=== PATIENT | female | born 1950 | race Caucasian/White ===

== ENCOUNTER 2022-09-21 21:37 | Inpatient (IN) | payer MEDICARE ==
[2022-09-21] MEDS ORDERED: Loratadine 10 MG TAB PO PRN (23:14)
[2022-09-21] MEDS ORDERED: HYDROcodone/Acetaminophen 10/325 mg Tablet PO PRN (23:14)
[2022-09-21] MEDS ORDERED: Hyoscyamine SL 0.125 MG TAB PO PRN (23:14)
[2022-09-21] MEDS: HYDROcodone/Acetaminophen 10/325 mg Tablet PO PRN (23:58)
[2022-09-22] MEDS: HYDROcodone/Acetaminophen 10/325 mg Tablet PO PRN ×3 (03:47→18:58)
[2022-09-22] MEDS: Levothyroxine Sodium 25 MCG TAB PO SCH (05:26)
[2022-09-22] MEDS: Levothyroxine Sodium 112 MCG TAB PO SCH (05:26)
[2022-09-22] MEDS ORDERED: traMADol HCl 50 MG TAB PO PRN (08:46)
[2022-09-22] MEDS ORDERED: Non-Formulary Item 1 EACH (Levothyroxine Sodium [Synthroid] 137 MCG Tablet) PO SCH (09:00)
[2022-09-22] MEDS: Losartan 25 MG TAB PO SCH (09:31)
[2022-09-22] MEDS: Aspirin 81 mg Enteric Coated Tablet PO SCH ×2 (09:31→20:28)
[2022-09-22] MEDS: Estradiol 1 MG TAB PO SCH (09:31)
[2022-09-22] MEDS: Senokot S 8.6-50 MG TAB PO SCH (09:31)
[2022-09-22] MEDS: Docusate 100 MG CAP PO SCH ×2 (09:31→20:28)
[2022-09-22] MEDS: Artificial Tear Sol 15 ML BOT EA EYE SCH ×2 (09:32→20:27)
[2022-09-22] MEDS: Ferrous Gluconate 324 MG TAB PO SCH ×2 (09:32→20:29)
[2022-09-22] MEDS: Colestipol 1 GM TAB PO SCH ×2 (09:32→20:30)
[2022-09-22] MEDS: Ascorbic Acid 500 mg Chewable Tablet PO SCH (09:32)
[2022-09-22] MEDS: Cyclobenzaprine 10 MG TAB PO PRN ×3 (10:24→19:00)
[2022-09-22] MEDS: Atorvastatin Calcium 10 MG TAB PO SCH (20:28)
[2022-09-23] MEDS: Senokot S 8.6-50 MG TAB PO SCH ×3 (02:43→20:36)
[2022-09-23] MEDS: Levothyroxine Sodium 25 MCG TAB PO SCH (05:40)
[2022-09-23] MEDS: HYDROcodone/Acetaminophen 10/325 mg Tablet PO PRN ×2 (05:40→09:38)
[2022-09-23] MEDS: Levothyroxine Sodium 112 MCG TAB PO SCH (05:40)
[2022-09-23] MEDS: Artificial Tear Sol 15 ML BOT EA EYE SCH ×2 (08:11→20:36)
[2022-09-23] MEDS: Colestipol 1 GM TAB PO SCH (08:13)
[2022-09-23] MEDS: Ascorbic Acid 500 mg Chewable Tablet PO SCH (08:13)
[2022-09-23] MEDS: Aspirin 81 mg Enteric Coated Tablet PO SCH ×2 (08:14→20:36)
[2022-09-23] MEDS: Losartan 25 MG TAB PO SCH (08:18)
[2022-09-23] MEDS: Estradiol 1 MG TAB PO SCH (08:18)
[2022-09-23] MEDS: Docusate 100 MG CAP PO SCH ×2 (08:18→20:36)
[2022-09-23] MEDS: Ferrous Gluconate 324 MG TAB PO SCH ×2 (08:19→20:36)
[2022-09-23] MEDS: Cyclobenzaprine 10 MG TAB PO PRN ×3 (09:42→23:37)
[2022-09-23] MEDS ORDERED: HYDROcodone/Acetaminophen 5/325 mg Tablet PO PRN (13:26)
[2022-09-23] MEDS ORDERED: traMADol HCl 50 MG TAB PO SCH (13:30)
[2022-09-23] MEDS: HYDROcodone/Acetaminophen 10/325 mg Tablet PO SCH ×2 (17:28→23:35)
[2022-09-23] MEDS: Atorvastatin Calcium 10 MG TAB PO SCH (20:36)
[2022-09-23] MEDS: traMADol HCl 50 MG TAB PO PRN (20:41)
[2022-09-23] MEDS: Polyethylene Glycol 3350 17 GM Packet PO PRN (20:42)
[2022-09-24] MEDS: HYDROcodone/Acetaminophen 10/325 mg Tablet PO SCH ×3 (05:46→18:06)
[2022-09-24] MEDS: Levothyroxine Sodium 112 MCG TAB PO SCH (05:46)
[2022-09-24] MEDS: Levothyroxine Sodium 25 MCG TAB PO SCH (05:46)
[2022-09-24] MEDS: Artificial Tear Sol 15 ML BOT EA EYE SCH ×2 (09:32→21:24)
[2022-09-24] MEDS: Ascorbic Acid 500 mg Chewable Tablet PO SCH (09:33)
[2022-09-24] MEDS: Aspirin 81 mg Enteric Coated Tablet PO SCH ×2 (09:33→21:21)
[2022-09-24] MEDS: Estradiol 1 MG TAB PO SCH (09:33)
[2022-09-24] MEDS: Docusate 100 MG CAP PO SCH ×2 (09:33→21:22)
[2022-09-24] MEDS: Losartan 25 MG TAB PO SCH (09:34)
[2022-09-24] MEDS: Ferrous Gluconate 324 MG TAB PO SCH ×2 (09:34→21:23)
[2022-09-24] MEDS: Senokot S 8.6-50 MG TAB PO SCH (09:34)
[2022-09-24] MEDS: traMADol HCl 50 MG TAB PO PRN ×2 (10:43→21:23)
[2022-09-24] MEDS: Atorvastatin Calcium 10 MG TAB PO SCH (21:21)
[2022-09-24] MEDS: Cyclobenzaprine 10 MG TAB PO PRN (21:22)
[2022-09-24] MEDS: Polyethylene Glycol 3350 17 GM Packet PO PRN (21:29)
[2022-09-25] MEDS: HYDROcodone/Acetaminophen 10/325 mg Tablet PO SCH ×4 (00:40→17:57)
[2022-09-25] MEDS: Levothyroxine Sodium 112 MCG TAB PO SCH (05:34)
[2022-09-25] MEDS: Levothyroxine Sodium 25 MCG TAB PO SCH (05:34)
[2022-09-25] MEDS: Losartan 25 MG TAB PO SCH (08:53)
[2022-09-25] MEDS: Ferrous Gluconate 324 MG TAB PO SCH ×2 (08:54→21:07)
[2022-09-25] MEDS: Aspirin 81 mg Enteric Coated Tablet PO SCH ×2 (08:54→21:07)
[2022-09-25] MEDS: Estradiol 1 MG TAB PO SCH (08:54)
[2022-09-25] MEDS: traMADol HCl 50 MG TAB PO PRN ×3 (08:54→21:48)
[2022-09-25] MEDS: Ascorbic Acid 500 mg Chewable Tablet PO SCH (08:54)
[2022-09-25] MEDS: Artificial Tear Sol 15 ML BOT EA EYE SCH ×2 (08:56→21:09)
[2022-09-25] MEDS: Atorvastatin Calcium 10 MG TAB PO SCH (21:05)
[2022-09-25] MEDS: Docusate 100 MG CAP PO SCH (21:06)
[2022-09-25] MEDS: Cyclobenzaprine 10 MG TAB PO PRN (21:06)
[2022-09-25] MEDS: Polyethylene Glycol 3350 17 GM Packet PO PRN (21:47)
[2022-09-26] MEDS: HYDROcodone/Acetaminophen 10/325 mg Tablet PO SCH ×4 (00:29→18:00)
[2022-09-26] MEDS: traMADol HCl 50 MG TAB PO PRN ×4 (04:07→20:59)
[2022-09-26] MEDS: Levothyroxine Sodium 25 MCG TAB PO SCH (05:39)
[2022-09-26] MEDS: Levothyroxine Sodium 112 MCG TAB PO SCH (05:39)
[2022-09-26] MEDS: Aspirin 81 mg Enteric Coated Tablet PO SCH ×2 (09:16→20:47)
[2022-09-26] MEDS: Losartan 25 MG TAB PO SCH (09:16)
[2022-09-26] MEDS: Estradiol 1 MG TAB PO SCH (09:17)
[2022-09-26] MEDS: Ascorbic Acid 500 mg Chewable Tablet PO SCH (09:17)
[2022-09-26] MEDS: Ferrous Gluconate 324 MG TAB PO SCH ×2 (09:17→20:47)
[2022-09-26] MEDS: Artificial Tear Sol 15 ML BOT EA EYE SCH ×2 (09:21→20:47)
[2022-09-26] MEDS: Docusate 100 MG CAP PO SCH (20:47)
[2022-09-26] MEDS: Atorvastatin Calcium 10 MG TAB PO SCH (20:47)
[2022-09-26] MEDS: Polyethylene Glycol 3350 17 GM Packet PO PRN (20:53)
[2022-09-26] MEDS: Senokot S 8.6-50 MG TAB PO PRN (20:53)
[2022-09-27] MEDS: HYDROcodone/Acetaminophen 10/325 mg Tablet PO SCH ×4 (00:44→17:48)
[2022-09-27] MEDS: Cyclobenzaprine 10 MG TAB PO PRN ×2 (04:14→20:17)
[2022-09-27] MEDS: traMADol HCl 50 MG TAB PO PRN ×3 (04:15→21:50)
[2022-09-27] MEDS: Levothyroxine Sodium 25 MCG TAB PO SCH (05:25)
[2022-09-27] MEDS: Levothyroxine Sodium 112 MCG TAB PO SCH (05:25)
[2022-09-27] MEDS: Aspirin 81 mg Enteric Coated Tablet PO SCH ×2 (08:13→20:18)
[2022-09-27] MEDS: Losartan 25 MG TAB PO SCH (08:13)
[2022-09-27] MEDS: Ascorbic Acid 500 mg Chewable Tablet PO SCH (08:14)
[2022-09-27] MEDS: Estradiol 1 MG TAB PO SCH (08:14)
[2022-09-27] MEDS: Ferrous Gluconate 324 MG TAB PO SCH ×2 (08:14→20:17)
[2022-09-27] MEDS: Artificial Tear Sol 15 ML BOT EA EYE SCH ×2 (08:14→20:18)
[2022-09-27] MEDS: Senokot S 8.6-50 MG TAB PO PRN (17:51)
[2022-09-27] MEDS: Atorvastatin Calcium 10 MG TAB PO SCH (20:16)
[2022-09-27] MEDS: Docusate 100 MG CAP PO SCH (20:17)
[2022-09-28] MEDS: HYDROcodone/Acetaminophen 10/325 mg Tablet PO SCH ×5 (00:15→23:58)
[2022-09-28] MEDS: traMADol HCl 50 MG TAB PO PRN ×3 (02:59→21:15)
[2022-09-28] MEDS: Levothyroxine Sodium 112 MCG TAB PO SCH (06:20)
[2022-09-28] MEDS: Levothyroxine Sodium 25 MCG TAB PO SCH (06:20)
[2022-09-28] MEDS: Losartan 25 MG TAB PO SCH (08:34)
[2022-09-28] MEDS: Ferrous Gluconate 324 MG TAB PO SCH ×2 (08:34→21:14)
[2022-09-28] MEDS: Ascorbic Acid 500 mg Chewable Tablet PO SCH (08:34)
[2022-09-28] MEDS: Estradiol 1 MG TAB PO SCH (08:35)
[2022-09-28] MEDS: Artificial Tear Sol 15 ML BOT EA EYE SCH ×2 (08:35→21:21)
[2022-09-28] MEDS: Aspirin 81 mg Enteric Coated Tablet PO SCH ×2 (08:35→21:14)
[2022-09-28] MEDS: Senokot S 8.6-50 MG TAB PO PRN ×2 (08:38→21:13)
[2022-09-28] MEDS: Polyethylene Glycol 3350 17 GM Packet PO PRN (17:46)
[2022-09-28] MEDS: Docusate 100 MG CAP PO SCH (21:14)
[2022-09-28] MEDS: Atorvastatin Calcium 10 MG TAB PO SCH (21:14)
[2022-09-28] MEDS: Cyclobenzaprine 10 MG TAB PO PRN (21:14)
[2022-09-29] MEDS: Levothyroxine Sodium 25 MCG TAB PO SCH (05:12)
[2022-09-29] MEDS: HYDROcodone/Acetaminophen 10/325 mg Tablet PO SCH ×4 (05:12→23:34)
[2022-09-29] MEDS: Levothyroxine Sodium 112 MCG TAB PO SCH (05:12)
[2022-09-29] MEDS: Estradiol 1 MG TAB PO SCH (08:23)
[2022-09-29] MEDS: Ascorbic Acid 500 mg Chewable Tablet PO SCH (08:25)
[2022-09-29] MEDS: Ferrous Gluconate 324 MG TAB PO SCH ×2 (08:25→20:13)
[2022-09-29] MEDS: Losartan 25 MG TAB PO SCH (08:25)
[2022-09-29] MEDS: Artificial Tear Sol 15 ML BOT EA EYE SCH ×2 (08:25→20:12)
[2022-09-29] MEDS: Aspirin 81 mg Enteric Coated Tablet PO SCH ×2 (08:25→20:14)
[2022-09-29] MEDS: Senokot S 8.6-50 MG TAB PO PRN (08:25)
[2022-09-29] MEDS: traMADol HCl 50 MG TAB PO PRN ×3 (08:27→21:20)
[2022-09-29] MEDS: Docusate 100 MG CAP PO SCH (20:13)
[2022-09-29] MEDS: Atorvastatin Calcium 10 MG TAB PO SCH (20:13)
[2022-09-29] MEDS: Cyclobenzaprine 10 MG TAB PO PRN (20:14)
[2022-09-30] MEDS: traMADol HCl 50 MG TAB PO PRN ×4 (03:06→21:12)
[2022-09-30] MEDS: Levothyroxine Sodium 25 MCG TAB PO SCH (05:37)
[2022-09-30] MEDS: HYDROcodone/Acetaminophen 10/325 mg Tablet PO SCH ×3 (05:37→17:56)
[2022-09-30] MEDS: Levothyroxine Sodium 112 MCG TAB PO SCH (05:37)
[2022-09-30] MEDS: Ascorbic Acid 500 mg Chewable Tablet PO SCH (08:43)
[2022-09-30] MEDS: Ferrous Gluconate 324 MG TAB PO SCH ×2 (08:43→21:12)
[2022-09-30] MEDS: Aspirin 81 mg Enteric Coated Tablet PO SCH ×2 (08:43→21:12)
[2022-09-30] MEDS: Losartan 25 MG TAB PO SCH (08:43)
[2022-09-30] MEDS: Artificial Tear Sol 15 ML BOT EA EYE SCH ×2 (08:43→21:14)
[2022-09-30] MEDS: Estradiol 1 MG TAB PO SCH (08:44)
[2022-09-30] MEDS: Senokot S 8.6-50 MG TAB PO PRN (08:50)
[2022-09-30 11:35] VITALS: BMI 40.2
[2022-09-30] MEDS: Docusate 100 MG CAP PO SCH (21:12)
[2022-09-30] MEDS: Polyethylene Glycol 3350 17 GM Packet PO PRN (21:12)
[2022-09-30] MEDS: Atorvastatin Calcium 10 MG TAB PO SCH (21:12)
[2022-09-30] MEDS: Cyclobenzaprine 10 MG TAB PO SCH (21:12)
[2022-10-01] MEDS: HYDROcodone/Acetaminophen 10/325 mg Tablet PO SCH ×4 (00:32→17:48)
[2022-10-01] MEDS: traMADol HCl 50 MG TAB PO PRN ×3 (03:54→16:14)
[2022-10-01] MEDS: Levothyroxine Sodium 25 MCG TAB PO SCH (06:14)
[2022-10-01] MEDS: Levothyroxine Sodium 112 MCG TAB PO SCH (06:14)
[2022-10-01] MEDS: Aspirin 81 mg Enteric Coated Tablet PO SCH ×2 (08:16→21:24)
[2022-10-01] MEDS: Losartan 25 MG TAB PO SCH (08:16)
[2022-10-01] MEDS: Estradiol 1 MG TAB PO SCH (08:17)
[2022-10-01] MEDS: Ferrous Gluconate 324 MG TAB PO SCH ×2 (08:17→21:24)
[2022-10-01] MEDS: Artificial Tear Sol 15 ML BOT EA EYE SCH ×2 (08:18→21:25)
[2022-10-01] MEDS: Ascorbic Acid 500 mg Chewable Tablet PO SCH (08:18)
[2022-10-01] MEDS: Senokot S 8.6-50 MG TAB PO PRN (16:14)
[2022-10-01] MEDS: Atorvastatin Calcium 10 MG TAB PO SCH (21:24)
[2022-10-01] MEDS: Polyethylene Glycol 3350 17 GM Packet PO PRN (21:25)
[2022-10-01] MEDS: Cyclobenzaprine 10 MG TAB PO SCH (21:25)
[2022-10-01] MEDS: Docusate 100 MG CAP PO SCH (21:25)
[2022-10-02] MEDS: HYDROcodone/Acetaminophen 10/325 mg Tablet PO SCH ×4 (00:37→17:46)
[2022-10-02] MEDS: Levothyroxine Sodium 112 MCG TAB PO SCH (05:52)
[2022-10-02] MEDS: Levothyroxine Sodium 25 MCG TAB PO SCH (05:52)
[2022-10-02] MEDS: Ferrous Gluconate 324 MG TAB PO SCH ×2 (08:10→20:38)
[2022-10-02] MEDS: Ascorbic Acid 500 mg Chewable Tablet PO SCH (08:10)
[2022-10-02] MEDS: traMADol HCl 50 MG TAB PO PRN ×3 (08:10→21:22)
[2022-10-02] MEDS: Estradiol 1 MG TAB PO SCH (08:11)
[2022-10-02] MEDS: Senokot S 8.6-50 MG TAB PO PRN (08:11)
[2022-10-02] MEDS: Losartan 25 MG TAB PO SCH (08:11)
[2022-10-02] MEDS: Aspirin 81 mg Enteric Coated Tablet PO SCH ×2 (08:11→20:38)
[2022-10-02] MEDS: Artificial Tear Sol 15 ML BOT EA EYE SCH ×2 (08:12→20:38)
[2022-10-02 20:21] VITALS: BP 111/70; TEMP 97.7
[2022-10-02] MEDS: Polyethylene Glycol 3350 17 GM Packet PO PRN (20:38)
[2022-10-02] MEDS: Docusate 100 MG CAP PO SCH (20:38)
[2022-10-02] MEDS: Cyclobenzaprine 10 MG TAB PO SCH (20:38)
[2022-10-02] MEDS: Atorvastatin Calcium 10 MG TAB PO SCH (20:38)
[2022-10-03] MEDS: HYDROcodone/Acetaminophen 10/325 mg Tablet PO SCH ×2 (00:23→05:34)
[2022-10-03] MEDS ORDERED: Ipratropium/Albuterol 3 ML NEB ONE (03:13)
[2022-10-03] MEDS: Levothyroxine Sodium 25 MCG TAB PO SCH ×2 (05:35→05:38)
[2022-10-03] MEDS: Levothyroxine Sodium 112 MCG TAB PO SCH (05:35)
[2022-10-03] MEDS: Artificial Tear Sol 15 ML BOT EA EYE SCH (08:15)
[2022-10-03] MEDS: Estradiol 1 MG TAB PO SCH (08:16)
[2022-10-03] MEDS: Losartan 25 MG TAB PO SCH (08:17)
[2022-10-03] MEDS: Ascorbic Acid 500 mg Chewable Tablet PO SCH (08:17)
[2022-10-03] MEDS: Ferrous Gluconate 324 MG TAB PO SCH (08:17)
[2022-10-03] MEDS: Senokot S 8.6-50 MG TAB PO PRN (08:17)
[2022-10-03] MEDS: Aspirin 81 mg Enteric Coated Tablet PO SCH (08:17)
[2022-10-03] MEDS: traMADol HCl 50 MG TAB PO PRN (08:18)
== END 2022-10-03 12:15 | disposition home or self-care (01) | DRG 560 ==
LOC: MADMS 21:37
PROVIDERS: ADMIT Family Medicine; ATTEND Family Medicine
DX: Z47.1 Aftercare following joint replacement surgery (principal); Z68.41 Body mass index [BMI] 40.0-44.9, adult; R53.1 Weakness; E66.9 Obesity, unspecified; E78.5 Hyperlipidemia, unspecified; E03.9 Hypothyroidism, unspecified; R53.81 Other malaise; K21.9 Gastro-esophageal reflux disease without esophagitis; I10 Essential (primary) hypertension; D64.9 Anemia, unspecified; Z88.1 Allergy status to other antibiotic agents; Z88.8 Allergy status to other drugs, medicaments and biological substances; Z79.899 Other long term (current) drug therapy; Z79.890 Hormone replacement therapy; Z79.82 Long term (current) use of aspirin; Z90.710 Acquired absence of both cervix and uterus; Z80.9 Family history of malignant neoplasm, unspecified
CPT/HCPCS: J7620